=== PATIENT | female | born 1995 | race Caucasian/White ===

== ENCOUNTER 2021-01-01 10:12 | Emergency (ER) | payer MEDICAID ==
[~2021-01-01] VITALS: Ht 167.6 cm; Wt 78.0 kg
[2021-01-01 11:14] LABS: BASOPHILS % 0.2 % (0.0-2.0); EOSINOPHILS % 1.3 % (0.0-5.0); HEMATOCRIT. 39.3 % (36.0-48.0); HEMOGLOBIN. 13.5 g/dL (12.0-16.0); LYMPHOCYTES % 30.5 % (20.0-50.0); MEAN CORPUSCULAR HEMOGLOBIN 29.7 pg (28.0-32.0); MEAN CORPUSCULAR VOLUME 86.8 fL (81.0-99.0); MEAN PLATELET VOLUME 9.2 fl (7.4-10.4); MONOCYTES % 5.4 % (2.0-8.0); NEUTROPHILS % 62.6 % (40.0-76.0); PLATELET 254 x1000/uL (130-400); RED BLOOD CELL COUNT 4.52 mill/uL (4.2-5.4); RED CELL DISTRIBUTION WIDTH 13.5 % (11.6-14.6)
[2021-01-01 11:24] LABS: CHLORIDE 105 mEq/L (98-107)
[2021-01-01 11:26] LABS: CLARITY URINE CLEAR (CLEAR); COLOR URINE YELLOW (YELLOW); KETONES URINE NEGATIVE (NEGATIVE); LEUKOCYTE ESTERASE URINE TRACE (NEGATIVE); NITRITE URINE NEGATIVE (NEGATIVE); OCCULT BLOOD URINE 2+ (NEGATIVE); PROTEIN URINE NEGATIVE (NEGATIVE); SPECIFIC GRAVITY URINE 1.021 (1.005-1.030); UROBILINOGEN URINE 0.2 E.U./dL (0.2-1.0)
[2021-01-01 11:48] LABS: B-HCG QUANTITATIVE 5518 mIU/mL (<3)
[2021-01-01] MEDS ORDERED: NITR-87 MT (12:00)
[2021-01-01] MEDS ORDERED: ACETAMINOPHEN 325MG TABLET PO ONE (12:45)
[2021-01-01] MEDS ORDERED: NITROFURANTOIN 100MG M/M CAPSULE PO ONE (12:45)
[2021-01-01 13:00] VITALS: BP 118/78
[2021-01-01] MEDS ORDERED: DOPAMINE 400MG/250ML PREMIX 250 ML IV SCH (13:00)
[2021-01-01] MEDS ORDERED: ATROPINE SULFATE 0.1MG/ML 10ML DISP.SYRIN IV ONE (13:00)
== END 2021-01-01 13:05 | disposition home or self-care (01) ==
LOC: ER 11:03
DX: O03.9 Complete or unspecified spontaneous abortion without complication (principal); Z3A.01 Less than 8 weeks gestation of pregnancy
CPT/HCPCS: 36415; 76801; 80053; 81003; 84702; 85025; 86850; 86900; 99284; J0461

== ENCOUNTER 2021-01-13 12:05 | Emergency (ER) | payer MEDICAID ==
[~2021-01-13] VITALS: Ht 162.6 cm; Wt 71.0 kg
[~2021-01-13 12:05] MED LIST: NITR-87 MT
[2021-01-13 13:09] LABS: BASOPHILS % 0.3 % (0.0-2.0); EOSINOPHILS % 1.7 % (0.0-5.0); HEMATOCRIT. 37.3 % (36.0-48.0); HEMOGLOBIN. 12.7 g/dL (12.0-16.0); LYMPHOCYTES % 34.8 % (20.0-50.0); MEAN CORPUSCULAR HEMOGLOBIN 29.9 pg (28.0-32.0); MEAN CORPUSCULAR VOLUME 87.8 fL (81.0-99.0); MONOCYTES % 6.7 % (2.0-8.0); NEUTROPHILS % 56.5 % (40.0-76.0); PLATELET 247 x1000/uL (130-400); RED BLOOD CELL COUNT 4.25 mill/uL (4.2-5.4); RED CELL DISTRIBUTION WIDTH 13.3 % (11.6-14.6)
[2021-01-13 13:15] LABS: CHLORIDE 106 mEq/L (98-107)
[2021-01-13 13:28] LABS: B-HCG QUANTITATIVE 256 mIU/mL (<3)
[2021-01-13] MEDS ORDERED: MISOPROSTOL 200MCG TABLET PO ONE (18:15)
[2021-01-13 18:27] LABS: CLARITY URINE CLEAR (CLEAR); COLOR URINE YELLOW (YELLOW); KETONES URINE NEGATIVE (NEGATIVE); LEUKOCYTE ESTERASE URINE NEGATIVE (NEGATIVE); NITRITE URINE NEGATIVE (NEGATIVE); OCCULT BLOOD URINE 1+ (NEGATIVE); PROTEIN URINE NEGATIVE (NEGATIVE); SPECIFIC GRAVITY URINE 1.016 (1.005-1.030); UROBILINOGEN URINE 0.2 E.U./dL (0.2-1.0)
[2021-01-13] MEDS ORDERED: METR500T MT (19:15)
[2021-01-13 19:51] VITALS: BP 135/76
[2021-01-17 04:11] LABS: NEISSERIA GONORRHOEAE NAA Negative (Negative)
== END 2021-01-13 19:54 | disposition left against medical advice (07) ==
LOC: ER 12:05
DX: O03.4 Incomplete spontaneous abortion without complication (principal)
CPT/HCPCS: 36415; 76801; 80053; 81003; 84702; 85025; 86850; 86900; 87210; 87491; 87591; 99284

== ENCOUNTER 2021-01-20 10:27 | Emergency (ER) | payer MEDICAID ==
[~2021-01-20] VITALS: Ht 160 cm; Wt 68.0 kg
[~2021-01-20 10:27] MED LIST changes: +METR500T MT
[2021-01-20 10:30] VITALS: BP 130/46
== END 2021-01-20 12:19 | disposition home or self-care (01) ==
LOC: ER 10:27
DX: O03.9 Complete or unspecified spontaneous abortion without complication (principal)
CPT/HCPCS: 99281

== ENCOUNTER 2021-10-09 14:29 | Observation (INO) | payer MEDICAID ==
[~2021-10-09] VITALS: Ht 165.1 cm; Wt 93.0 kg
[2021-10-09] MEDS ORDERED: LACTATED RINGERS 1,000 ML IV SCH (16:00)
[2021-10-09] MEDS ORDERED: ONDANSETRON HCL 4MG/2ML INJ IV PRN (16:00)
[2021-10-09 16:46] LABS: BASOPHILS % 0.2 % (0.0-2.0); EOSINOPHILS % 0.5 % (0.0-5.0); HEMATOCRIT. 35.4 % (36.0-48.0); HEMOGLOBIN. 11.8 g/dL (12.0-16.0); LYMPHOCYTES % 12.4 % (20.0-50.0); MEAN CORPUSCULAR HEMOGLOBIN 27.3 pg (28.0-32.0); MEAN CORPUSCULAR VOLUME 82.4 fL (81.0-99.0); MEAN PLATELET VOLUME 9.2 fl (7.4-10.4); MONOCYTES % 9.4 % (2.0-8.0); NEUTROPHILS % 77.5 % (40.0-76.0); PLATELET 222 x1000/uL (130-400); RED CELL DISTRIBUTION WIDTH 13.5 % (11.6-14.6)
[2021-10-09 16:48] LABS: CLARITY URINE TURBID (CLEAR); COLOR URINE YELLOW (YELLOW); KETONES URINE NEGATIVE (NEGATIVE); LEUKOCYTE ESTERASE URINE 3+ (NEGATIVE); NITRITE URINE POSITIVE (NEGATIVE); OCCULT BLOOD URINE TRACE (NEGATIVE); PROTEIN URINE TRACE (NEGATIVE); SPECIFIC GRAVITY URINE 1.009 (1.005-1.030)
[2021-10-09 16:52] LABS: CHLORIDE 103 mEq/L (98-107)
[2021-10-09 17:27] LABS: *AMPHETAMINES SCREEN URINE NEGATIVE (NEGATIVE); *BARBITURATES SCREEN URINE NEGATIVE (NEGATIVE); *BENZODIAZEPINES SCREEN URINE NEGATIVE (NEGATIVE); *COCAINE SCREEN URINE NEGATIVE (NEGATIVE); CANNABINOID URINE SCREEN NEGATIVE (NEGATIVE); METHADONE URINE SCREEN NEGATIVE (NEGATIVE); OPIATES URINE SCREEN NEGATIVE (NEGATIVE); PHENCYCLIDINE URINE SCREEN NEGATIVE (NEGATIVE)
[2021-10-09] MEDS ORDERED: CEFAZOLIN 2,000 MG in DEXT 5% WATER 100 ML IV SCH (18:00)
== END 2021-10-09 18:30 | disposition home or self-care (01) ==
LOC: 8 EST LDRP 14:29
PROVIDERS: ADMIT Obstetrics & Gynecology; ATTEND Obstetrics & Gynecology
DX: O21.2 Late vomiting of pregnancy (principal); O26.892 Other specified pregnancy related conditions, second trimester; R19.7 Diarrhea, unspecified; R10.30 Lower abdominal pain, unspecified; Z3A.25 25 weeks gestation of pregnancy; Z79.899 Other long term (current) drug therapy
CPT/HCPCS: 36415; 59025; 76805; 80053; 80305; 81003; 85025; 87086; 87426; 96361; 96374; 96375; J0690; J2405; J7060; 96360; 96365; 99281; G0378

== ENCOUNTER 2022-01-08 17:17 | Observation (INO) | payer MEDICAID ==
[~2022-01-08] VITALS: Ht 165.1 cm; Wt 90.7 kg
[2022-01-08 20:51] LABS: CLARITY URINE CLEAR (CLEAR); COLOR URINE YELLOW (YELLOW); KETONES URINE NEGATIVE (NEGATIVE); LEUKOCYTE ESTERASE URINE 3+ (NEGATIVE); NITRITE URINE POSITIVE (NEGATIVE); OCCULT BLOOD URINE NEGATIVE (NEGATIVE); PROTEIN URINE NEGATIVE (NEGATIVE); SPECIFIC GRAVITY URINE 1.015 (1.005-1.030); UROBILINOGEN URINE 0.2 E.U./dL (0.2-1.0)
[2022-01-08] MEDS ORDERED: CEFAZOLIN 1000MG PREMIX 50 ML IV NR (23:00)
== END 2022-01-08 23:22 | disposition home or self-care (01) ==
LOC: 8 EST LDRP 17:17
PROVIDERS: ADMIT Obstetrics & Gynecology; ATTEND Obstetrics & Gynecology
DX: O62.9 Abnormality of forces of labor, unspecified (principal); Z3A.38 38 weeks gestation of pregnancy; Z79.899 Other long term (current) drug therapy
CPT/HCPCS: 59025; 76805; 76818; 81003; 87086; G0378; J0690

== ENCOUNTER 2022-01-12 12:21 | Observation (INO) | payer MEDICAID ==
[~2022-01-12] VITALS: Ht 170.2 cm; Wt 96.2 kg
== END 2022-01-12 17:05 | disposition home or self-care (01) ==
LOC: 8 EST LDRP 12:21
PROVIDERS: ADMIT Obstetrics & Gynecology; ATTEND Obstetrics & Gynecology
DX: O26.893 Other specified pregnancy related conditions, third trimester (principal); R03.0 Elevated blood-pressure reading, without diagnosis of hypertension; R10.13 Epigastric pain; O62.9 Abnormality of forces of labor, unspecified; Z3A.39 39 weeks gestation of pregnancy
CPT/HCPCS: 59025; 76815; 76818; G0378; 99281

== ENCOUNTER 2022-01-16 11:22 | Observation (INO) | payer MEDICAID ==
[2022-01-16] MEDS ORDERED: PNV1TABL50 MT (12:53)
== END 2022-01-16 13:15 | disposition home or self-care (01) ==
LOC: 8 EST LDRP 11:22
PROVIDERS: ADMIT Obstetrics & Gynecology; ATTEND Obstetrics & Gynecology
DX: O36.8330 Maternal care for abnormalities of the fetal heart rate or rhythm, third trimester, not applicable or unspecified (principal); Z3A.39 39 weeks gestation of pregnancy
CPT/HCPCS: 59025; G0378; 99281

== ENCOUNTER 2022-01-18 10:21 | Inpatient (IN) | payer MEDICAID ==
[~2022-01-18] VITALS: Ht 165.1 cm; Wt 81.6 kg
[2022-01-18] MEDS: PENICILLIN G POTASSIUM 2.5 MMU in DEXTROSE 5% WATER 50 ML IV SCH ×2 (01:26→20:20)
[2022-01-18] MEDS: MISOPROSTOL 100MCG TABLET VG SCH ×4 (03:20→19:50)
[~2022-01-18 10:21] MED LIST changes: -METR500T MT; -NITR-87 MT; +PNV1TABL50 MT
[2022-01-18] MEDS ORDERED: OXYTOCIN 30 UNITS/500ML NS PMX 500 ML IV SCH (11:30)
[2022-01-18] MEDS ORDERED: METHYLERGONOVINE MALEATE 0.2 MG/ML IM PRN (11:30)
[2022-01-18] MEDS ORDERED: RHO(D) IMMUNE GLOBULIN 300 MCG/SYR IM SCH (11:30)
[2022-01-18] MEDS ORDERED: BUTORPHANOL TARTRATE 2 MG/ML VIAL IV PRN (11:30)
[2022-01-18] MEDS ORDERED: NALOXONE HCL 0.4 MG/ML 1ML VIAL IM PRN (11:30)
[2022-01-18] MEDS ORDERED: LIDOCAINE HCL 1% 20ML VIAL (Pyxis) INJ INFIL SCH (11:30)
[2022-01-18] MEDS ORDERED: DEXT 5%/LACTATED RINGERS 1,000 ML IV SCH (12:30)
[2022-01-18 14:07] LABS: CLARITY URINE CLEAR (CLEAR); COLOR URINE YELLOW (YELLOW); KETONES URINE NEGATIVE (NEGATIVE); LEUKOCYTE ESTERASE URINE 3+ (NEGATIVE); NITRITE URINE POSITIVE (NEGATIVE); OCCULT BLOOD URINE NEGATIVE (NEGATIVE); PROTEIN URINE NEGATIVE (NEGATIVE); SPECIFIC GRAVITY URINE 1.009 (1.005-1.030)
[2022-01-18 14:21] LABS: BASOPHILS % 0.2 % (0.0-2.0); EOSINOPHILS % 0.7 % (0.0-5.0); HEMATOCRIT. 38.2 % (36.0-48.0); HEMOGLOBIN. 12.6 g/dL (12.0-16.0); LYMPHOCYTES % 19.5 % (20.0-50.0); MEAN CORPUSCULAR HEMOGLOBIN 26.5 pg (28.0-32.0); MEAN CORPUSCULAR VOLUME 80.4 fL (81.0-99.0); MEAN PLATELET VOLUME 10.3 fl (7.4-10.4); MONOCYTES % 6.9 % (2.0-8.0); NEUTROPHILS % 72.7 % (40.0-76.0); PLATELET 184 x1000/uL (130-400); RED BLOOD CELL COUNT 4.75 mill/uL (4.2-5.4); RED CELL DISTRIBUTION WIDTH 16.8 % (11.6-14.6)
[2022-01-18 14:28] LABS: PARTIAL THROMBOPLASTIN TIME 29.3 sec (23.4-31.0); PROTHROMBIN TIME 10.5 sec (9.6-11.0)
[2022-01-18 14:47] LABS: *AMPHETAMINES SCREEN URINE NEGATIVE (NEGATIVE); *BARBITURATES SCREEN URINE NEGATIVE (NEGATIVE); *BENZODIAZEPINES SCREEN URINE NEGATIVE (NEGATIVE); *COCAINE SCREEN URINE NEGATIVE (NEGATIVE); CANNABINOID URINE SCREEN NEGATIVE (NEGATIVE); METHADONE URINE SCREEN NEGATIVE (NEGATIVE); OPIATES URINE SCREEN NEGATIVE (NEGATIVE); PHENCYCLIDINE URINE SCREEN NEGATIVE (NEGATIVE)
[2022-01-18 15:21] LABS: HEPATITIS B SURFACE ANTIGEN NEGATIVE
[2022-01-18] MEDS: LACTATED RINGERS 1,000 ML IV SCH ×2 (16:53→21:00)
[2022-01-18] MEDS: PENICILLIN G POTASSIUM 5 MMU in DEXT 5% WATER 100 ML IV SCH ×2 (23:30→23:32)
[2022-01-19] MEDS: PENICILLIN G POTASSIUM 2.5 MMU in DEXTROSE 5% WATER 50 ML IV SCH (03:19)
[2022-01-19] MEDS: MISOPROSTOL 100MCG TABLET VG SCH (03:20)
[2022-01-19] MEDS ORDERED: MORPHINE SULFATE/PF 1MG/ML 10ML AMP ONE (05:30)
[2022-01-19] MEDS ORDERED: DEXAMETHASONE 4MG/ML 1ML VIAL ONE (06:13)
[2022-01-19] MEDS ORDERED: KETOROLAC 60MG/2ML VIAL IM ONE (06:13)
[2022-01-19] MEDS ORDERED: CEFAZOLIN SODIUM 1000MG/VIAL ONE (06:13)
[2022-01-19] MEDS ORDERED: ONDANSETRON HCL 4MG/2ML INJ ONE (06:13)
[2022-01-19] MEDS ORDERED: OXYTOCIN 10 UNITS/ML 1ML ONE (06:13)
[2022-01-19] MEDS ORDERED: FENTANYL CITRATE/PF 50MCG/ML 2ML VIAL IV PRN (06:30)
[2022-01-19] MEDS ORDERED: NALOXONE HCL 0.4 MG/ML 1ML VIAL IV PRN (06:30)
[2022-01-19] MEDS ORDERED: MORPHINE SULFATE 10 MG/ML CPJ IV PRN (06:30)
[2022-01-19] MEDS ORDERED: BISACODYL 10MG SUPP PR PRN (07:45)
[2022-01-19] MEDS ORDERED: RHO(D) IMMUNE GLOBULIN 300 MCG/SYR IM PRN (07:45)
[2022-01-19] MEDS ORDERED: LANOLIN OINT 7GM TUBE TOP PRN (07:45)
[2022-01-19] MEDS ORDERED: HYDROCODONE/ACETAMINOPHEN 5/325MG TABLET PO PRN (07:45)
[2022-01-19] MEDS ORDERED: OXYTOCIN 30 UNITS/500ML NS PMX 500 ML IV SCH (07:45)
[2022-01-19] MEDS ORDERED: IBUPROFEN 400MG TABLET PO PRN (07:45)
[2022-01-19] MEDS ORDERED: ONDANSETRON HCL 4MG/2ML INJ IV PRN (07:45)
[2022-01-19] MEDS ORDERED: DIPHENHYDRAMINE 25MG CAPSULE PO PRN (07:45)
[2022-01-19 09:15] VITALS: BP 114/73
[2022-01-19 16:00] VITALS: BP 109/51
[2022-01-19] MEDS ORDERED: FLUCONAZOLE 150MG TABLET PO NR (17:30)
[2022-01-19 20:00] VITALS: BP 112/58
[2022-01-19] MEDS: KETOROLAC 30MG/ML VIAL IV PRN (21:49)
[2022-01-20] VITALS: BP 115/53
[2022-01-20] MEDS: LACTATED RINGERS 1,000 ML IV SCH (00:36)
[2022-01-20] MEDS: KETOROLAC 30MG/ML VIAL IV PRN (03:50)
[2022-01-20 04:00] VITALS: BP 98/56
[2022-01-20 07:07] LABS: BASOPHILS % 0.4 % (0.0-2.0); EOSINOPHILS % 0.9 % (0.0-5.0); HEMATOCRIT. 25.6 % (36.0-48.0); HEMOGLOBIN. 8.6 g/dL (12.0-16.0); LYMPHOCYTES % 21.6 % (20.0-50.0); MEAN CORPUSCULAR HEMOGLOBIN 27.2 pg (28.0-32.0); MEAN CORPUSCULAR VOLUME 80.6 fL (81.0-99.0); MEAN PLATELET VOLUME 9.7 fl (7.4-10.4); MONOCYTES % 7.3 % (2.0-8.0); NEUTROPHILS % 69.8 % (40.0-76.0); PLATELET 151 x1000/uL (130-400); RED BLOOD CELL COUNT 3.17 mill/uL (4.2-5.4)
[2022-01-20 08:05] VITALS: BP 116/69
[2022-01-20] MEDS: PRENATAL VIT/FE FUMARATE/FA TABLET PO SCH (08:32)
[2022-01-20] MEDS: ACETAMINOPHEN WITH CODEINE 300/30MG TABLET PO PRN ×2 (13:18→18:01)
[2022-01-20 16:00] VITALS: BP 111/67
[2022-01-20] MEDS ORDERED: NALOXONE HCL 0.4MG/ML VIAL IV PRN (18:45)
[2022-01-20 21:47] VITALS: BP 121/78
[2022-01-21] MEDS: ACETAMINOPHEN WITH CODEINE 300/30MG TABLET PO PRN ×3 (01:52→17:45)
[2022-01-21 05:17] VITALS: BP 117/63
[2022-01-21 08:00] VITALS: BP 122/78
[2022-01-21] MEDS: PRENATAL VIT/FE FUMARATE/FA TABLET PO SCH (08:58)
[2022-01-21] MEDS: FERROUS SULFATE 325MG TABLET PO SCH (08:58)
[2022-01-21 16:30] VITALS: BP 128/78
[2022-01-21 20:00] VITALS: BP 103/52
[2022-01-22] MEDS: ACETAMINOPHEN WITH CODEINE 300/30MG TABLET PO PRN (03:11)
[2022-01-22 04:01] VITALS: BP 115/86
[2022-01-22] MEDS ORDERED: IBUP-2028 PO (07:00)
[2022-01-22] MEDS ORDERED: FERR-63 PO (07:00)
[2022-01-22 08:00] VITALS: BP 113/82
[2022-01-22] MEDS: FERROUS SULFATE 325MG TABLET PO SCH (09:38)
[2022-01-22] MEDS: PRENATAL VIT/FE FUMARATE/FA TABLET PO SCH (09:38)
[2022-01-22 09:39] VITALS: BP 113/82
== END 2022-01-22 13:40 | disposition home or self-care (01) | DRG 540 ==
LOC: 8 EST LDRP 10:21 → OBSVTOIN 10:22 → 8 EST A/PP 01-19 08:50 → 8EST 01-20 18:29
PROVIDERS: ADMIT Obstetrics & Gynecology; ATTEND Obstetrics & Gynecology
PROC: 10D00Z1 Extraction of Products of Conception, Low, Open Approach (ICD-10-PCS; principal; 2022-01-19)
DX: O13.4 Gestational [pregnancy-induced] hypertension without significant proteinuria, complicating childbirth (principal); O98.82 Other maternal infectious and parasitic diseases complicating childbirth; O36.63X0 Maternal care for excessive fetal growth, third trimester, not applicable or unspecified; Z20.822 Contact with and (suspected) exposure to COVID-19; O69.81X0 Labor and delivery complicated by cord around neck, without compression, not applicable or unspecified; O62.2 Other uterine inertia; O99.824 Streptococcus B carrier state complicating childbirth; B37.9 Candidiasis, unspecified; O77.0 Labor and delivery complicated by meconium in amniotic fluid; O99.03 Anemia complicating the puerperium; Z37.0 Single live birth; Z3A.39 39 weeks gestation of pregnancy
CPT/HCPCS: 36415; 80305; 81003; 84550; 85025; 86592; 86703; 86762; 86850; 86900; 87340; 87426; 88307; 99281; G0378; J0595; J0690; J1100; J1885; J2274; J2405; J2540; J3490; J7060; J7120; J2590